=== PATIENT | male | born 1995 | race Two or more races ===

== ENCOUNTER 2016-08-24 15:59 | Inpatient (IN) | payer OTHER ==
[~2016-08-24] VITALS: Ht 170.2 cm; Wt 81.1 kg
[2016-08-24 17:22] LABS: AMPHETAMINES LEVEL URINE NEGATIVE (NEGATIVE); BENZODIAZEPINES URINE NEGATIVE (NEGATIVE); COCAINE METABOLITE URINE NEGATIVE (NEGATIVE); CONTROL LINE INT CTR LINE PRESENT; METHADONE URINE NEGATIVE (NEGATIVE); OPIATES URINE NEGATIVE (NEGATIVE); TRICYCLIC ANTIDEPRESS URINE NEGATIVE (NEGATIVE)
[2016-08-24 17:33] LABS: MEAN CORPUSCULAR HEMOGLOBIN 29.8 pg (27.0-33.0); MEAN CORPUSCULAR HGB CONC 34.5 g/dl (32.0-36.5); MEAN CORPUSCULAR VOLUME 86.4 fl (80.0-96.0); RED CELL DISTRIBUTION WIDTH 12.9 % (11.5-14.5); WHITE BLOOD COUNT 9.5 K/mm3 (4.0-10.0)
[2016-08-24 17:39] LABS: ALBUMIN 3.7 GM/DL (3.2-5.2); ALBUMIN/GLOBULIN RATIO 1.23 (1.00-1.93); ALKALINE PHOSPHATASE 92 U/L (45-117); ALT/SGPT 44 U/L (12-78); ANION GAP 9 MEQ/L (8-16); AST/SGOT 26 U/L (15-37); BILIRUBIN,DIRECT < 0.1 MG/DL (0.0-0.2); BILIRUBIN,TOTAL 0.3 MG/DL (0.2-1.0); BLOOD UREA NITROGEN 12 MG/DL (7-18); CARBON DIOXIDE LEVEL 27 MEQ/L (21-32); CHLORIDE LEVEL 107 MEQ/L (98-107); CREATININE FOR GFR 1.03 MG/DL (0.70-1.30); GLUCOSE, FASTING 91 MG/DL (70-105); SODIUM LEVEL 143 MEQ/L (136-145); TOTAL PROTEIN 6.7 GM/DL (6.4-8.2)
[2016-08-24] MEDS ORDERED: IBUP40TA PO (20:24)
[2016-08-24] MEDS ORDERED: VITMTA PO (20:24)
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
--- NOTE | 2016-08-24 20:41 | EDDOCDS ---
Physician Documentation [facility] Name: Todd Velásquez Age: 20 yrs Sex: Male : 1995 Arrival Date: 08/24/2016 Time: 15:59 Bed BHU1 Private MD: Disposition: 08/24 19:25 Critical Care: Critical care not applicable. pc Disposition: 08/24/16 19:26 Hospitalization ordered by Tommie Márquez for Inpatient Admission. Preliminary diagnosis are Major depressive disorder, single episode, moderate, Suicidal ideations. - Bed requested for Admit. - Status is Inpatient Admission. sls1 - Condition is Stable. - Problem is new. - Symptoms are unchanged. Historical: - Allergies: PENICILLINS; - Home Meds: 1. none - PMHx: none; - PSHx: none; - Social history: Smoking status: Patient states was never smoker of tobacco. No barriers to communication noted, The patient speaks fluent Yemeni, Speaks appropriately for age. - Family history: Not pertinent. - : The pt / caregiver states he / she is not on anticoagulants. Home medication list is obtained from the patient. - Exposure Risk Screening:: None identified. Vital Signs: 16:27 Weight 79.83 kg / 176 lbs; Height 5 ft. 7 in. (170.18 cm); Pain 0/10; pml 17:12 BP 133 / 89; Pulse 69; Resp 17; Temp 95(T); Pulse Ox 97% on R/A; pjf 20:28 BP 146 / 88; Pulse 84; Resp 16; Temp 96.8(O); Pulse Ox 96% ; Pain 0/10; mas 16:27 Body Mass Index 27.57 (79.83 kg, 170.18 cm) pml MDM: 16:05 Consult PFS/PSA/Marine Railway Operator ordered. sd1 16:05 Consult PFS/PSA/Marine Railway Operator: Patient's case requires discussion with on-call sd1 Psychiatrist ordered. 16:05 PSA/PFS to call Nursing Automobile Service Station Manager, to enter patient data on [place] Safe Act if patient sd1 involuntarily admitted or transferred for SI or HI ordered. 16:05 Confirm accurate psychiatric medication list and times of last dosage ordered. sd1 16:05 Detain Pt Until Medically/PFS Cleared ordered. sd1 16:06 Acetaminophen Level Ordered. EDMS 16:06 Basic Metabolic Profile Ordered. EDMS 16:06 Complete Blood Count Ordered. EDMS 16:06 Drug Eval Toxicology ED Only Ordered. EDMS 16:06 Ethyl Alcohol (ethanol) Ordered. EDMS 16:06 Liver Profile Ordered. EDMS 16:06 Salicylate Level Ordered. EDMS 16:06 Thyroid Stimulating Hormone Ordered. EDMS 16:42 Financial registration complete. zo 16:48 [facility] Payment Agreement was scanned into [employer] and attached to record. zo 17:00 REGULAR DIET PLASTIC [place]+DIET ordered. EDMS 17:59 Consult PFS/PSA/Marine Railway Operator complete. ca 17:59 Consult PFS/PSA/Marine Railway Operator: Patient's case requires discussion with on-call ca Psychiatrist complete. 17:59 PSA/PFS to call Nursing Automobile Service Station Manager, to enter patient data on [place] Safe [place] if patient ca involuntarily admitted or transferred for SI or HI complete. 18:57 Admit to [facility]: ordered. EDMS 19:08 [facility] Legal paperwork was scanned into [employer] and attached to record. cs 19:24 Acetaminophen Level Reviewed. pc 19:24 Complete Blood Count Reviewed. pc 19:24 Salicylate Level Reviewed. pc 19:24 Basic Metabolic Profile Reviewed. pc 19:24 Drug Eval Toxicology ED Only Reviewed. pc 19:24 Ethyl Alcohol (ethanol) Reviewed. pc 19:24 Liver Profile Reviewed. pc 19:24 Thyroid Stimulating Hormone Reviewed. pc 19:25 [place] Safe Act reporting: The patient poses a significant risk to self or others, and pc PSA/PFS has notified the Nursing Automobile Service Station Manager and he/she will complete the required database technician. The patient has been re-examined and re-evaluated. There is no appreciated change of the patient's symptoms at this time. Disposition: The historical points, examination findings, and any diagnostic results supporting the provided diagnosis, were discussed with the patient or legal guardian. The need for further work-up and/or treatment in the hospital was explained. Signatures: Dispatcher [employer] EDMS Braulio Nogueira MD MD pc Delaney-Rowland, Sarah, MD MD sd1 Xiao Arnold, PSA PSA ca Zana Pizano, PSA PSA Eliz Regan Shannon, RN RN sls1 Eliane Kahn RN RN pml The chart was reviewed and I authenticate all verbal orders and agree with the evaluation and treatment provided.Attachments: 16:48 [facility]
[2016-08-24 21:05] VITALS: BP 138/86
[2016-08-24] MEDS ORDERED: MOM 30ML SUSPENSION UDC PO PRN (22:45)
[2016-08-24] MEDS ORDERED: MAALOX 30 ML SUSP *UDC PO PRN (22:45)
[2016-08-24] MEDS ORDERED: LORazepam 1 MG TAB PO PRN (23:00)
[2016-08-25 06:35] VITALS: BP 116/58
--- NOTE | 2016-08-25 11:34 | HPEPDOC ---
Medical History and Physical Date of Admission Aug 24, 2016 at 20:45 History and Physical PCP: [facility] ATTENDING: Dr. Carlton Bagley HPI: 20yoM admitted to [facility] for unspecified depressive disorder, being medically examined today. No acute medical complaints today. Denies any fevers, chills, weakness, fatigue, SHETH, CP, SOB, cough, palpitations, abdominal pain, N/V /D or changes in bowel or bladder habits. 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 ROS: As noted in HPI, otherwise 11pt ROS of systems reviewed and unremarkable. PE: GEN: 20yoM, appears stated age. Well-nourished, well developed. No acute distress. Alert and oriented x 3. Pleasant, interactive. HEENT: Normocephalic, atraumatic. Pupils are equal, round, and reactive to light. Extraocular movements are intact. No nystagmus appreciated. Sclera are nonicteric. Conjunctiva without injection. Nose midline. Nasal turbinates without bogginess. EACs both patent BL. TMs both visualized and sanders with good cone of light, no bulging or erythema. No facial asymmetry. Moist mucous membranes. Dentition fair. Pharynx pink and moist, no cobblestoning. Neck supple , trachea midline. No lymphadenopathy or thyromegaly appreciated. CHEST: Regular rate and rhythm, +S1, +S2 LUNGS: Clear to auscultation bilaterally. No wheezes, rales, or rhonchi. Breathing appears symmetric and easy. Patient is speaking in full sentences. No accessory muscle use. ABD: Round, soft, non-tender, non-distended. +Bowel sounds throughout. No rebound or guarding. No costovertebral angle tenderness. EXT: Pulses 2+ bilaterally dorsalis pedis and radial. No lower extremity edema appreciated. SKIN: Lee, dry, warm. Capillary refill <2sec. No rashes. NEURO: Alert and oriented x 3. Cranial nerves III-XII are intact. No focal deficits appreciated. EKG: pending. A&P: 20yoM admitted to [facility] for unspecified depressive disorder 1. Psych. Plan per Psychiatry. Obtain baseline EKG to assure the safety of psychiatric medications as they can prolong the QT interval. 2. Follow up with PCP on discharge. [facility]. 3. Staff member present throughout exam, product safety compliance leader Ed. Vital Signs Vital Signs Label Value Date Time Patient Temperature 96.2 degrees F 08/25/16 0635 Pulse 59 08/25/16 0635 Respiratory Rate 18 bpm 08/25/16 0635 Blood Pressure Assessment 116/58 (77) 08/25/16 0635 Laboratory Data Labs 24H Laboratory Tests 2 08/24/16 16:54: Acetaminophen Level < 2.0L, Aspartate Amino Transf (AST/SGOT) 26, Alanine Aminotransferase (ALT/SGPT) 44, Alkaline Phosphatase 92, Total Bilirubin 0.3, Direct Bilirubin < 0.1, Albumin 3.7, Albumin/Globulin Ratio 1.23, Anion Gap 9, Calcium Level 9.0, Ethyl Alcohol Level < 0.003, Salicylates Level < 1.7L, Thyroid Stimulating Hormone (TSH) 0.797, Total Protein 6.7, Urine Amphetamine Level NEGATIVE, Urine Benzodiazepines Screen NEGATIVE, Urine Cannabinoids NEGATIVE, Urine Cocaine Metabolite NEGATIVE, Urine Opiates Screen NEGATIVE, Urine Barbiturates, Qualitative NEGATIVE, Urine Methadone Screen NEGATIVE, Urine Tricyclic Antidepressants NEGATIVE CBC/BMP Laboratory Tests 08/24/16 16:54 Red Blood Count 4.80, Mean Corpuscular Volume 86.4, Mean Corpuscular Hemoglobin 29.8, Mean Corpuscular Hemoglobin Concent 34.5, Red Cell Distribution Width 12.9 Home Medications Scheduled Multivitamins *[facility] STOCKED* (Thera M Plus *[facility] STOCKED*) 1 Tab Tab 1 TAB PO DAILY Scheduled PRN Ibuprofen (Ibuprofen) 400 Mg Tab 400 MG PO PRN PRN PRN HEADACHE Allergies Coded Allergies: Penicillins (Unverified Allergy, Unknown, HIVES, 08/24/16) Eveline Dill Aug 25, 2016 11:34
[2016-08-25 12:37] VITALS: BP 129/76
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
[2016-08-25] MEDS: buPROPion **XL** TABLET 150MG (WELLBUTRIN XL) PO SCH (15:13)
[2016-08-25 18:01] VITALS: BP 126/74
[2016-08-26 07:07] VITALS: BP 140/66
[2016-08-26] MEDS: buPROPion **XL** TABLET 150MG (WELLBUTRIN XL) PO SCH (09:32)
[2016-08-26 12:00] VITALS: BP 139/83
--- NOTE | 2016-08-26 17:36 | IPNPDOC ---
[facility] Progress Note Progress Note DATE OF SERVICE: 08/26/16 HISTORY: Butter Printer met with patient today to assess treatment progress on the inpatient unit. Patient has been up out of bed, visible on unit, attending unit activities, remains withdrawn, but is making efforts to engage with selective staff and peers. Patient rates current anxiety level is 1/10, depression 6/10, denies current suicidal or homicidal ideation, denies audiovisual hallucinations , denies urge to engage in self-injurious behavior. Patient indicates he slept well last night and, per EMR, slept for 7 hours throughout the night without use of sleep aid. Patient took initial dose of Wellbutrin XL 150 mg this morning , denies medication side effects and informs continuity writer he wants to continue with medication trial in effort to reduce symptoms of depression and anxiety. Patient has not utilized as needed medication for anxiety or sleep, verbalizes awareness that these medications are available to him if needed. Patient denies symptoms of anger, agitation, or mood lability, reports improvement in energy level, notes appetite and concentration are stable. Patient asked about discharge planning and reiterates desire to return to [place] once stabilized on medication. VITAL SIGNS: See below. NEW TEST RESULTS: No new results. Labs on admission indicated low HCT. UDS on admission negative. EKG results remain pending, not found in EMR CURRENT MEDICATIONS: See below. MENTAL STATUS EXAMINATION: Patient is a 20 -year-old single male who is pleasant and cooperative, exhibits good personal hygiene, is dressed in hospital clothing, makes good eye contact, walks with steady gait, and appears stated age. Speech: Is of low volume but of normal rate, rhythm, articulation is good, speech is coherent and spontaneous Language skills are intact. Thought processes: Clear, goal-directed. Thought content: Rational, logical, no indication of paranoia during interaction. Abstract reasoning appears intact Description of associations: Intact Description of abnormal or psychotic thoughts: Denies hallucinations, delusions , preoccupation with violence, homicidal or suicidal ideation, and obsessions]. Judgment: Limited. Insight: Limited. Orientation to time, place and person Recent and remote memory: Appears intact Attention span and concentration: Within normal limits. Language: Normal. Fund of knowledge: Adequate. 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 Patient denies having plan or intent to harm self at time of suicidal ideation but indicates he did turn over 2 knives to his chain of command due to concerns that he may harm himself. Patient appears to be adjusting to unit, has been visible, engaging appropriately with select peers and staff, is attending groups. Patient denies current suicidal and homicidal ideation and is able to effectively engage in the safety planning process, verbalizes understanding of how to access supportive services on unit if needed. Patient reports challenges with sleep prior to coming to hospital, but notes he has been sleeping better since admitted to Hospital, has not needed to utilize PRN sleep aid, denies nightmares symptoms. Patient took first dose of Wellbutrin XL 150 mg po q am this morning, denies medication side effects, reiterates motivation to take medication which will reduce symptoms of anxiety and depression which patient indicates he has been experiencing "for years." Will monitor patient response to Wellbutrin XL and will evaluate need for titration as tolerated by patient. Will continue to monitor patient's adjustment to environment, evaluate patient's safety and resolution of suicidal ideation, and readiness for discharge. MANAGEMENT PLAN: Continue Wellbutrin XL 150 mg po q am. Patient is aware he also has available to him hydroxyzine 50 mg po q 6 hours PRN for anxiety/ agitation and Trazodone 50 mg po hs PRN for insomnia Maintain safety precautions Patient to attend groups and participate in unit programming to develop coping strategies Engage patient in discharge planning process and arrange meeting with command to ensure safe discharge planning when appropriate Patient to follow up with [facility] upon discharge TIME SPENT: 35 minutes Vital Signs Vital Signs Date Time Temp Pulse Resp B/P Pulse Ox O2 Delivery O2 Flow Rate FiO2 08/26/16 12:00 97.8 92 16 139/83 Current Medications Current Medications Acetaminophen (Tylenol Tab) 650 mg Q6HP PRN PO HEADACHE or DISCOMFORT; Start at 22:45; Stop 09/23/16 at 22:44 Al Hydrox/Mg Hydrox/Simethicone (Mylanta) 30 ml Q4HP PRN PO HEARTBURN/ INDIGESTION; Start 08/24/16 at 22:45; Stop 09/23/16 at 22:44 Bupropion HCl (Wellbutrin Xl) 150 mg QAM PO Last administered on 08/26/16t 09:32 ; Start 08/25/16 at 09:00; Stop 09/24/16 at 08:59 Home Med (Med Rec Complete!) ASDIRECTED XX ; Start 08/24/16 at 20:30; Stop at 20:54; Status DC Hydroxyzine HCl (Atarax) 50 mg Q6HP PRN PO ANXIETY/AGITATION; Start 08/25/16 at 14:30; Stop 09/24/16 at 14:29 Lorazepam (Ativan) 1 mg Q4HP PRN PO ANXIETY; Start 08/24/16 at 23:00; Stop at 14:19; Status DC Magnesium Hydroxide (Milk Of Magnesia) 30 ml DAILYPRN PRN PO CONSTIPATION; Start 08/24/16 at 22:45; Stop 09/23/16 at 22:44 Trazodone HCl (Desyrel) 50 mg QHSP PRN PO INSOMNIA; Start 08/24/16 at 22:45; Stop 09/23/16 at 22:44 Allergies Coded Allergies: Penicillins (Unverified Allergy, Unknown, HIVES, 08/24/16) Shonda Pickett Aug 26, 2016 17:36
[2016-08-26 18:00] VITALS: BP 130/76
--- NOTE | 2016-08-26 21:41 | EDDOCDS ---
Physician Documentation [facility] Name: Todd Velásquez Age: 20 yrs Sex: Male : 1995 Arrival Date: 08/24/2016 Time: 15:59 Bed BHU1 Private MD: Disposition: 08/24 19:25 Critical Care: Critical care not applicable. pc Disposition: 08/24/16 19:26 Hospitalization ordered by Tommie Márquez for Inpatient Admission. Preliminary diagnosis are Major depressive disorder, single episode, moderate, Suicidal ideations. - Bed requested for Admit. - Status is Inpatient Admission. sls1 - Condition is Stable. - Problem is new. - Symptoms are unchanged. Historical: - Allergies: PENICILLINS; - Home Meds: 1. none - PMHx: none; - PSHx: none; - Social history: Smoking status: Patient states was never smoker of tobacco. No barriers to communication noted, The patient speaks fluent Kazakh, Speaks appropriately for age. - Family history: Not pertinent. - : The pt / caregiver states he / she is not on anticoagulants. Home medication list is obtained from the patient. - Exposure Risk Screening:: None identified. Vital Signs: 16:27 Weight 79.83 kg / 176 lbs; Height 5 ft. 7 in. (170.18 cm); Pain 0/10; pml 17:12 BP 133 / 89; Pulse 69; Resp 17; Temp 95(T); Pulse Ox 97% on R/A; pjf 20:28 BP 146 / 88; Pulse 84; Resp 16; Temp 96.8(O); Pulse Ox 96% ; Pain 0/10; mas 16:27 Body Mass Index 27.57 (79.83 kg, 170.18 cm) pml MDM: 16:05 Consult PFS/PSA/Prepress Technician ordered. sd1 16:05 Consult PFS/PSA/Prepress Technician: Patient's case requires discussion with on-call sd1 Psychiatrist ordered. 16:05 PSA/PFS to call Nursing Custodian Manager, to enter patient data on [place] Safe [place] if patient sd1 involuntarily admitted or transferred for SI or HI ordered. 16:05 Confirm accurate psychiatric medication list and times of last dosage ordered. sd1 16:05 Detain Pt Until Medically/PFS Cleared ordered. sd1 16:06 Acetaminophen Level Ordered. EDMS 16:06 Basic Metabolic Profile Ordered. EDMS 16:06 Complete Blood Count Ordered. EDMS 16:06 Drug Eval Toxicology ED Only Ordered. EDMS 16:06 Ethyl Alcohol (ethanol) Ordered. EDMS 16:06 Liver Profile Ordered. EDMS 16:06 Salicylate Level Ordered. EDMS 16:06 Thyroid Stimulating Hormone Ordered. EDMS 16:42 Financial registration complete. zo 16:48 [facility] [place] was scanned into [employer] and attached to record. zo 17:00 REGULAR DIET PLASTIC LAGUNA+DIET ordered. EDMS 17:59 Consult PFS/PSA/Prepress Technician complete. ca 17:59 Consult PFS/PSA/Prepress Technician: Patient's case requires discussion with on-call ca Psychiatrist complete. 17:59 PSA/PFS to call Nursing Custodian Manager, to enter patient data [place] if patient ca involuntarily admitted or transferred for SI or HI complete. 18:57 Admit to [facility]: ordered. EDMS 19:08 [facility] Legal paperwork was scanned into [employer] and attached to record. cs 19:24 Acetaminophen Level Reviewed. pc 19:24 Complete Blood Count Reviewed. pc 19:24 Salicylate Level Reviewed. pc 19:24 Basic Metabolic Profile Reviewed. pc 19:24 Drug Eval Toxicology ED Only Reviewed. pc 19:24 Ethyl Alcohol (ethanol) Reviewed. pc 19:24 Liver Profile Reviewed. pc 19:24 Thyroid Stimulating Hormone Reviewed. pc 19:25 [place] Safe Act reporting: The patient poses a significant risk to self or others, and pc PSA/PFS has notified the Nursing Custodian Manager and he/she will complete the required senior marketing data analyst. The patient has been re-examined and re-evaluated. There is no appreciated change of the patient's symptoms at this time. Disposition: The historical points, examination findings, and any diagnostic results supporting the provided diagnosis, were discussed with the patient or legal guardian. The need for further work-up and/or treatment in the hospital was explained. 08/25 09:47 T-Sheet-- Draft Copy was scanned into [employer] and attached to record. gb 09:47 PCR was scanned into [employer] and attached to record. gb Signatures: Dispatcher [employer] EDME Braulio Nogueira MD MD pc Delaney-Rowland, Sarah, MD MD sd1 Xiao Arnold, PSA PSA Zana Pitts PSA PSA cs Gabby Jimenez, Reg Reg gb Eliz Bolaños Shannon, RN RN sls1 Eliane Kahn RN RN pml The chart was reviewed and I authenticate all verbal orders and agree with the evaluation and treatment provided.Attachments: 08/24 16:48 [facility] [place] Agreement zo 08/25 09:47 T-Sheet-- Draft Copy gb Chart Complete MTDD
--- NOTE | 2016-08-26 21:41 | EDDOCDS ---
Physician Documentation [facility] Name: Todd Velásquez Age: 20 yrs Sex: Male : 1995 Arrival Date: 08/24/2016 Time: 15:59 Bed BHU1 Private MD: Disposition: 08/24 19:25 Critical Care: Critical care not applicable. pc Disposition: 08/24/16 19:26 Hospitalization ordered by Tommie Márquez for Inpatient Admission. Preliminary diagnosis are Major depressive disorder, single episode, moderate, Suicidal ideations. - Bed requested for Admit. - Status is Inpatient Admission. sls1 - Condition is Stable. - Problem is new. - Symptoms are unchanged. Historical: - Allergies: PENICILLINS; - Home Meds: 1. none - PMHx: none; - PSHx: none; - Social history: Smoking status: Patient states was never smoker of tobacco. No barriers to communication noted, The patient speaks fluent Venezuelan, Speaks appropriately for age. - Family history: Not pertinent. - : The pt / caregiver states he / she is not on anticoagulants. Home medication list is obtained from the patient. - Exposure Risk Screening:: None identified. Vital Signs: 16:27 Weight 79.83 kg / 176 lbs; Height 5 ft. 7 in. (170.18 cm); Pain 0/10; pml 17:12 BP 133 / 89; Pulse 69; Resp 17; Temp 95(T); Pulse Ox 97% on R/A; pjf 20:28 BP 146 / 88; Pulse 84; Resp 16; Temp 96.8(O); Pulse Ox 96% ; Pain 0/10; mas 16:27 Body Mass Index 27.57 (79.83 kg, 170.18 cm) pml MDM: 16:05 Consult PFS/PSA/Splicing Supervisor ordered. sd1 16:05 Consult PFS/PSA/Splicing Supervisor: Patient's case requires discussion with on-call sd1 Psychiatrist ordered. 16:05 PSA/PFS to call Nursing On Site Soil Evaluator, to [place] data [place] if patient sd1 involuntarily admitted or transferred for SI or HI ordered. 16:05 Confirm accurate psychiatric medication list and times of last dosage ordered. sd1 16:05 Detain Pt Until Medically/PFS Cleared ordered. sd1 16:06 Acetaminophen Level Ordered. EDMS 16:06 Basic Metabolic Profile Ordered. EDMS 16:06 Complete Blood Count Ordered. EDMS 16:06 Drug Eval Toxicology ED Only Ordered. EDMS 16:06 Ethyl Alcohol (ethanol) Ordered. EDMS 16:06 Liver Profile Ordered. EDMS 16:06 Salicylate Level Ordered. EDMS 16:06 Thyroid Stimulating Hormone Ordered. EDMS 16:42 Financial registration complete. zo 16:48 [facility] [place] Agreement was scanned into [employer] and attached to record. zo 17:00 REGULAR DIET PLASTIC LAGUNA+DIET ordered. EDMS 17:59 Consult PFS/PSA/Splicing Supervisor complete. ca 17:59 Consult PFS/PSA/Splicing Supervisor: Patient's case requires discussion with on-call ca Psychiatrist complete. 17:59 PSA/PFS to call Nursing On Site Soil Evaluator, to [place] if patient ca involuntarily admitted or transferred for SI or HI complete. 18:57 Admit to [facility]: ordered. EDMS 19:08 [facility] Legal paperwork was scanned into [employer] and attached to record. cs 19:24 Acetaminophen Level Reviewed. pc 19:24 Complete Blood Count Reviewed. pc 19:24 Salicylate Level Reviewed. pc 19:24 Basic Metabolic Profile Reviewed. pc 19:24 Drug Eval Toxicology ED Only Reviewed. pc 19:24 Ethyl Alcohol (ethanol) Reviewed. pc 19:24 Liver Profile Reviewed. pc 19:24 Thyroid Stimulating Hormone Reviewed. pc 19:25 [place] reporting: The patient poses a significant risk to self or others, and pc PSA/PFS has notified the Nursing On Site Soil Evaluator and he/she will complete the required chief data officer. The patient has been re-examined and re-evaluated. There is no appreciated change of the patient's symptoms at this time. Disposition: The historical points, examination findings, and any diagnostic results supporting the provided diagnosis, were discussed with the patient or legal guardian. The need for further work-up and/or treatment in the hospital was explained. 08/25 09:47 T-Sheet-- Draft Copy was scanned into [employer] and attached to record. gb 09:47 PCR was scanned into [employer] and attached to record. gb Signatures: Dispatcher [employer] EDAZ Braulio Nogueira MD MD pc Delaney-Rowland, Sarah, MD MD sd1 Xiao Arnold, PSA PSA Zana Pitts PSA PSA cs Gabby Jimenez, Reg Reg gb Eliz Bolaños Shannon, RN RN sls1 Eliane Kahn RN RN pml The chart was reviewed and I authenticate all verbal orders and agree with the evaluation and treatment provided.Attachments: 08/24 16:48 [facility] [place] Payment Agreement zo 08/25 09:47 T-Sheet-- Draft Copy gb Chart Complete MTDD
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
[2016-08-27 06:35] VITALS: BP 136/60
[2016-08-27] MEDS: buPROPion **XL** TABLET 150MG (WELLBUTRIN XL) PO SCH (08:10)
[2016-08-27 11:36] VITALS: BP 133/87
[2016-08-27] MEDS: OSELTAMIVIR PHOSPHATE 75 MG CAP (TAMIFLU) PO SCH (12:51)
[2016-08-27 18:00] VITALS: BP 126/71
--- NOTE | 2016-08-27 20:02 | IPNPDOC ---
[facility] Progress Note Progress Note DATE OF SERVICE: 08/27/16 HISTORY: Mica Washer Gluer met with patient today to assess treatment progress on the inpatient unit. Patient was observed to be resting in bed in groups, is easily engaged and set up to meet with technical writer and editor. Patient has otherwise been visible on unit, attending unit activities, remains withdrawn but, per EMR, is making increased efforts to engage socially. Patient rates current anxiety level is 1/ 10, depression 6/10, denies current suicidal or homicidal ideation, denies audiovisual hallucinations, denies urge to engage in self-injurious behavior. Patient indicates he is sleeping well without use of sleep aid, denies nightmare symptoms. Patient indicates he continues to take Wellbutrin XL 150 mg , reports feeling tired, indicates he is not sure if related to medication, was encouraged to monitor. patient remains interested in continuing medication in effort to reduce symptoms of depression and anxiety. Patient denies symptoms of anger, agitation, or mood lability, notes appetite and concentration are stable. Patient denies physical pain and presents with no signs of acute distress. VITAL SIGNS: See below. NEW TEST RESULTS: No new results. Labs on admission indicated low HCT. UDS on admission negative. EKG results remain pending, not found in EMR CURRENT MEDICATIONS: See below. MENTAL STATUS EXAMINATION: Patient is a 20 -year-old single male who is pleasant and cooperative, exhibits good personal hygiene, is dressed in hospital clothing, makes good eye contact, walks with steady gait, and appears stated age. Speech: Is of low volume but of normal rate, rhythm, articulation is good, speech is coherent and spontaneous Language skills are intact. Thought processes: Clear, goal-directed. Thought content: Rational, logical, no indication of paranoia during interaction. Abstract reasoning appears intact Description of associations: Intact Description of abnormal or psychotic thoughts: Denies hallucinations, delusions , preoccupation with violence, homicidal or suicidal ideation, and obsessions]. Judgment: Limited. Insight: Limited. Orientation to time, place and person Recent and remote memory: Appears intact Attention span and concentration: Within normal limits. Language: Normal. Fund of knowledge: Adequate. Mood: "About the same." Appears depressed, no mood lability noted Affect: Constricted, and brightens 1, congruent with mood DIAGNOSES: Major depressive disorder, recurrent, moderate, rule out adjustment disorder with depressed mood, rule out PTSD ASSESSMENT: Patient appears to be adjusting to unit, has been visible, engaging appropriately with select peers and staff, is attending groups. Patient denies current suicidal and homicidal ideation and is able to effectively engage in the safety planning process, verbalizes understanding of how to access supportive services on unit if needed. Patient reports challenges with sleep prior to coming to hospital, but notes sleep remains improved since hospital admission, has not needed to utilize PRN sleep aid or anxiolytic. Patient took second dose of Wellbutrin XL 150 mg po q am this morning, denies medication side effects, reiterates motivation to take medication which will reduce symptoms of anxiety and depression which patient indicates he has been experiencing "for years." Will monitor patient response to Wellbutrin XL and will evaluate need for titration as tolerated by patient. Will continue to monitor patient's adjustment to environment, evaluate patient's safety and resolution of suicidal ideation, and readiness for discharge. MANAGEMENT PLAN: Continue Wellbutrin XL 150 mg po q am. Patient is aware he also has available to him hydroxyzine 50 mg po q 6 hours PRN for anxiety/ agitation and Trazodone 50 mg po hs PRN for insomnia Maintain safety precautions Patient to attend groups and participate in unit programming to develop coping strategies Engage patient in discharge planning process and arrange meeting with command to ensure safe discharge planning when appropriate Patient to follow up with Silvestre OLSON upon discharge TIME SPENT: 35 minutes Vital Signs Vital Signs Date Time Temp Pulse Resp B/P Pulse Ox O2 Delivery O2 Flow Rate FiO2 08/27/16 18:00 98.8 71 18 126/71 Current Medications Current Medications Acetaminophen (Tylenol Tab) 650 mg Q6HP PRN PO HEADACHE or DISCOMFORT; Start at 22:45; Stop 09/23/16 at 22:44 Al Hydrox/Mg Hydrox/Simethicone (Mylanta) 30 ml Q4HP PRN PO HEARTBURN/ INDIGESTION; Start 08/24/16 at 22:45; Stop 09/23/16 at 22:44 Bupropion HCl (Wellbutrin Xl) 150 mg QAM PO Last administered on 08/27/16t 08: 10; Start 08/25/16 at 09:00; Stop 09/24/16 at 08:59 Home Med (Med Rec Complete!) ASDIRECTED XX ; Start 08/24/16 at 20:30; Stop at 20:54; Status DC Hydroxyzine HCl (Atarax) 50 mg Q6HP PRN PO ANXIETY/AGITATION; Start 08/25/16 at 14:30; Stop 09/24/16 at 14:29 Lorazepam (Ativan) 1 mg Q4HP PRN PO ANXIETY; Start 08/24/16 at 23:00; Stop at 14:19; Status DC Magnesium Hydroxide (Milk Of Magnesia) 30 ml DAILYPRN PRN PO CONSTIPATION; Start 08/24/16 at 22:45; Stop 09/23/16 at 22:44 Oseltamivir Phosphate (Tamiflu) 75 mg DAILY PO Last administered on 08/27/16t 12:51; Start 08/27/16 at 09:00; Stop 09/06/16 at 08:59 Trazodone HCl (Desyrel) 50 mg QHSP PRN PO INSOMNIA; Start 08/24/16 at 22:45; Stop 09/23/16 at 22:44 Allergies Coded Allergies: Penicillins (Unverified Allergy, Unknown, HIVES, 08/24/16) Shonda Pickett Aug 27, 2016 20:02
[2016-08-28 06:17] VITALS: BP 127/79
[2016-08-28] MEDS: OSELTAMIVIR PHOSPHATE 75 MG CAP (TAMIFLU) PO SCH (08:30)
[2016-08-28] MEDS: buPROPion **XL** TABLET 150MG (WELLBUTRIN XL) PO SCH (08:30)
[2016-08-28] MEDS: ACETAMINOPHEN TAB 650MG DOSE (2X325MG) PO PRN (16:03)
[2016-08-28 18:33] VITALS: BP 131/66
[2016-08-29] MEDS: ACETAMINOPHEN TAB 650MG DOSE (2X325MG) PO PRN (06:21)
[2016-08-29 06:32] VITALS: BP 126/67
--- NOTE | 2016-08-29 07:14 | IPN ---
DATE: 08/28/2016 CHIEF COMPLAINT: Says feels better. SUBJECTIVE: He is sen for followup. Says his mood is better in that he is a bit less depressed. Sleep is fair, says has had difficulties with sleep, both getting to and staying asleep. Appetite is fair. Denies any suicidal thoughts or intents. MENTAL STATUS EXAMINATION: Neat, cooperative but appears somewhat guarded at time. Answers question briefly, coherently. Affect is restricted in range. Denies active suicidal thoughts at present. Denies any firm plans. No homicidal ideas or intents. Currently, no evidence of any psychosis. Judgment and insight are questionable. ASSESSMENT: Major depressive disorder, recurrent, moderate. PLAN: Continue Wellbutrin XL 150 mg daily. He is also on hydroxyzine 50 mg every 6 hours as needed. I would suggest that he be encouraged to be involved in activities in the unit. Further recommendations will be made depending on the clinical picture.
[2016-08-29] MEDS: buPROPion **XL** TABLET 150MG (WELLBUTRIN XL) PO SCH (08:06)
[2016-08-29] MEDS: OSELTAMIVIR PHOSPHATE 75 MG CAP (TAMIFLU) PO SCH (08:06)
[2016-08-29 18:00] VITALS: BP 134/78
[2016-08-29] MEDS: traZODone 50 MG TAB PO PRN (21:20)
[2016-08-30 06:00] VITALS: BP 141/76
--- NOTE | 2016-08-30 08:46 | IPNPDOC ---
[facility] Progress Note Progress Note DATE OF SERVICE: 08/30/16 SUBJECTIVE: ========= Patient is calm and cooperative on interview. He is engaged and reports has improved since admission. Today he reports his mood continues to be depressed at at an intensity of 5-6/10. He denies thoughts of SI and HI today. Patient reports no medication side effects on his current psychotropic regimen. He denies SHETH, CP, ABD pain. He denies N/V/C/D. No bizarre or inappropriate statements or behaviors noted. Patient reports fair sleep and appetite. No behavioral issues on the unit. OBJECTIVE: ========= VITAL SIGNS: wnl. NEW TEST RESULTS: No new results. CURRENT MEDICATIONS: See below. MENTAL STATUS EXAMINATION: Patient is 20-year-old male, Patient presents with good personal hygiene, is dressed in hospital clothing, makes good eye contact, steady gait, exhibits no psychomotor retardation or agitation today, appears stated age, engaged, calm and cooperative with interview. Speech: Is of normal rate, rhythm, volume, spontaneous, coherent Language skills are intact. Thought processes: Clear, goal-directed Thought content: Rational. Abstract reasoning, and computation: Appears intact Description of associations: Intact. Description of abnormal or psychotic thoughts: Patient denies hallucinations, delusions, preoccupation with violence, homicidal or suicidal ideation, and obsessions]. Judgment: Fair. Insight: Fair. Orientation to time, place and person. Recent and remote memory: Immediate, short-term and long-term memory is intact Attention span and concentration: Within normal limits. Language: Normal. Fund of knowledge: Adequate. Mood: depressed Affect: mildly depressed ASSESSMENT: MDD, R, M, w/o PFs r/o PTSD PLAN: ==== -Continue current psychotropic regimen as written. Patient reporting benefit on current regimen. -Maintain safety precautions. -Patient to attend groups and participate in unit programming to develop coping strategies. TIME SPENT: 20 minutes Vital Signs Vital Signs Date Time Temp Pulse Resp B/P Pulse Ox O2 Delivery O2 Flow Rate FiO2 08/30/16 06:00 96.5 70 18 141/76 Current Medications Current Medications Acetaminophen (Tylenol Tab) 650 mg Q6HP PRN PO HEADACHE or DISCOMFORT Last administered on 08/29/16t 06:21; Start 08/24/16 at 22:45; Stop 09/23/16 at 22:44 Al Hydrox/Mg Hydrox/Simethicone (Mylanta) 30 ml Q4HP PRN PO HEARTBURN/ INDIGESTION; Start 08/24/16 at 22:45; Stop 09/23/16 at 22:44 Bupropion HCl (Wellbutrin Xl) 150 mg QAM PO Last administered on 08/29/16 08: 06; Start 08/25/16 at 09:00; Stop 09/24/16 at 08:59 Home Med (Med Rec Complete!) ASDIRECTED XX ; Start 08/24/16 at 20:30; Stop at 20:54; Status DC Hydroxyzine HCl (Atarax) 50 mg Q6HP PRN PO ANXIETY/AGITATION; Start 08/25/16 at 14:30; Stop 09/24/16 at 14:29 Lorazepam (Ativan) 1 mg Q4HP PRN PO ANXIETY; Start 08/24/16 at 23:00; Stop at 14:19; Status DC Magnesium Hydroxide (Milk Of Magnesia) 30 ml DAILYPRN PRN PO CONSTIPATION; Start 08/24/16 at 22:45; Stop 09/23/16 at 22:44 Oseltamivir Phosphate (Tamiflu) 75 mg DAILY PO Last administered on 08/29/16 08:06; Start 08/27/16 at 09:00; Stop 09/06/16 at 08:59 Trazodone HCl (Desyrel) 50 mg QHSP PRN PO INSOMNIA Last administered on 21:20; Start 08/24/16 at 22:45; Stop 09/23/16 at 22:44 Allergies Coded Allergies: Penicillins (Unverified Allergy, Unknown, HIVES, 08/24/16) NEVAEH ADLER MD Aug 30, 2016 08:46 NEVAEH ADLER MD Aug 30, 2016 08:46
[2016-08-30] MEDS: OSELTAMIVIR PHOSPHATE 75 MG CAP (TAMIFLU) PO SCH (08:52)
[2016-08-30] MEDS: buPROPion **XL** TABLET 150MG (WELLBUTRIN XL) PO SCH (08:52)
[2016-08-30] MEDS: ACETAMINOPHEN TAB 650MG DOSE (2X325MG) PO PRN (15:11)
[2016-08-30 18:00] VITALS: BP 127/61
[2016-08-31 07:11] VITALS: BP 133/64
[2016-08-31] MEDS: OSELTAMIVIR PHOSPHATE 75 MG CAP (TAMIFLU) PO SCH (08:32)
[2016-08-31] MEDS: buPROPion **XL** TABLET 150MG (WELLBUTRIN XL) PO SCH (08:32)
--- NOTE | 2016-08-31 09:49 | IPNPDOC ---
[facility] Progress Note Progress Note DATE OF SERVICE: 08/31/16 HISTORY: Monitor Technician met with patient today to assess treatment progress on the inpatient unit. Patient was observed to be resting in bed in groups, is easily engaged and set up to meet with grant writer. Patient indicates he has been attending groups when able, notes he was sick with a head cold over the weekend, but is feeling better today. Patient reports 1/10 anxiety, 2/10 depression, denies suicidal and homicidal ideation, denies audiovisual hallucinations, denies urge to engage in self-injurious behavior. Patient indicates he is sleeping well without use of sleep aid and denies nightmare symptoms, notes he experienced some difficulty with sleep over weekend due to symptoms of head cold. Patient indicates he continues to take Wellbutrin XL 150 mg, today denies medication side effects and informs grant writer he feels medication is helpful in reducing symptoms of anxiety and depression. Patient denies symptoms of anger, agitation , or mood lability, notes appetite and concentration are stable. Patient denies physical pain and presents with no signs of acute distress. Patient informs grant writer he feels his residual symptoms are "strictly situational," related to family tension, notes he feels his feelings can be worked through in outpatient psychotherapy. Patient informs grant writer today he feels her for discharge and is requesting to return to his unit at [facility] and participate in outpatient psychotherapy and medication management services VITAL SIGNS: See below. NEW TEST RESULTS: No new results. Labs on admission indicated low HCT. UDS on admission negative. EKG results remain pending, not found in EMR CURRENT MEDICATIONS: See below. MENTAL STATUS EXAMINATION: Patient is a 20 -year-old single male who is pleasant and cooperative, exhibits good personal hygiene, is dressed in hospital clothing, makes good eye contact, walks with steady gait, and appears stated age. Speech: Is of low volume but of normal rate, rhythm, articulation is good, speech is coherent and spontaneous Language skills are intact. Thought processes: Clear, goal-directed. Thought content: Rational, logical, no indication of paranoia during interaction. Abstract reasoning appears intact Description of associations: Intact Description of abnormal or psychotic thoughts: Denies hallucinations, delusions , preoccupation with violence, homicidal or suicidal ideation, and obsessions]. Judgment: Limited. Insight: Limited. Orientation to time, place and person Recent and remote memory: Appears intact Attention span and concentration: Within normal limits. Language: Normal. Fund of knowledge: Adequate. Mood: "I feel better." Does not appear depressed or irritable, no mood lability noted Affect: Mild constriction, brightens frequently, congruent with mood DIAGNOSES: Major depressive disorder, recurrent, moderate, rule out adjustment disorder with depressed mood, rule out PTSD ASSESSMENT: Patient has adjusted to unit, has been visible, and is engaging appropriately with peers and staff, is attending groups. Patient has been over the head cold over the weekend, indicates today he is feeling better, and "stronger," notes he feels prepared to return to the [facility] base. Patient denies suicidal and homicidal ideation and is able to effectively engage in the safety planning process, verbalizes understanding of how to access supportive services on unit if needed. Patient denies challenges with sleep other than related to head cold symptoms he experienced over the weekend, has needed to utilize PRN sleep aid 1 during his inpatient stay, has not needed to take PRN anxiolytic, states energy level has improved. Patient states Wellbutrin XL continues to work well and denies medication side effects. Patient is today requesting discharge, multimedia coordinator to schedule meeting with [facility] and to begin making arrangements for patient to discharge to [facility] with follow-up with outpatient behavioral health services for psychotherapy and medication management, and evaluation for IOP. MANAGEMENT PLAN: Continue Wellbutrin XL 150 mg po q am. Patient is aware he also has available to him hydroxyzine 50 mg po q 6 hours PRN for anxiety/ agitation and Trazodone 50 mg po hs PRN for insomnia Maintain safety precautions Patient to attend groups and participate in unit programming to develop coping strategies Engage patient in discharge planning process and arrange meeting with [facility] to ensure safe discharge planning when appropriate Patient to follow up with [facility] upon discharge TIME SPENT: 35 minutes Vital Signs Vital Signs Date Time Temp Pulse Resp B/P Pulse Ox O2 Delivery O2 Flow Rate FiO2 08/31/16 07:11 99.2 79 16 133/64 Current Medications Current Medications Acetaminophen (Tylenol Tab) 650 mg Q6HP PRN PO HEADACHE or DISCOMFORT Last administered on 08/30/16t 15:11; Start 08/24/16 at 22:45; Stop 09/23/16 at 22:44 Al Hydrox/Mg Hydrox/Simethicone (Mylanta) 30 ml Q4HP PRN PO HEARTBURN/ INDIGESTION; Start 08/24/16 at 22:45; Stop 09/23/16 at 22:44 Bupropion HCl (Wellbutrin Xl) 150 mg QAM PO Last administered on 08/31/16 08: 32; Start 08/25/16 at 09:00; Stop 09/24/16 at 08:59 Home Med (Med Rec Complete!) ASDIRECTED XX ; Start 08/24/16 at 20:30; Stop at 20:54; Status DC Hydroxyzine HCl (Atarax) 50 mg Q6HP PRN PO ANXIETY/AGITATION; Start 08/25/16 at 14:30; Stop 09/24/16 at 14:29 Lorazepam (Ativan) 1 mg Q4HP PRN PO ANXIETY; Start 08/24/16 at 23:00; Stop at 14:19; Status DC Magnesium Hydroxide (Milk Of Magnesia) 30 ml DAILYPRN PRN PO CONSTIPATION; Start 08/24/16 at 22:45; Stop 09/23/16 at 22:44 Oseltamivir Phosphate (Tamiflu) 75 mg DAILY PO Last administered on 08/31/16 08:32; Start 08/27/16 at 09:00; Stop 09/06/16 at 08:59 Trazodone HCl (Desyrel) 50 mg QHSP PRN PO INSOMNIA Last administered on 21:20; Start 08/24/16 at 22:45; Stop 09/23/16 at 22:44 Allergies Coded Allergies: Penicillins (Unverified Allergy, Unknown, HIVES, 08/24/16) Shonda Pickett Aug 31, 2016 09:49
[2016-08-31] MEDS: hydrOXYzine 50 MG TAB PO PRN (16:50)
[2016-08-31 18:00] VITALS: BP 133/64
[2016-08-31] MEDS: traZODone 50 MG TAB PO PRN (22:13)
[2016-09-01 06:41] VITALS: BP 117/56
[2016-09-01] MEDS ORDERED: OSEL75CA PO (08:41)
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
[2016-09-01] MEDS: hydrOXYzine 50 MG TAB PO PRN (09:49)
[2016-09-01] MEDS: OSELTAMIVIR PHOSPHATE 75 MG CAP (TAMIFLU) PO SCH (09:49)
[2016-09-01] MEDS: buPROPion **XL** TABLET 150MG (WELLBUTRIN XL) PO SCH (09:49)
[2016-09-01] MEDS ORDERED: BUPR150T3 PO (10:49)
[2016-09-01] MEDS ORDERED: HYDRO50TAB PO (10:49)
== END 2016-09-01 15:00 | disposition home or self-care (01) | DRG 885 ==
LOC: M ED 15:59 → M PSY 20:45
PROVIDERS: ADMIT Psychiatry & Neurology Psychiatry; ATTEND Psychiatry & Neurology Psychiatry
DX: F33.1 Major depressive disorder, recurrent, moderate (principal); F43.21 Adjustment disorder with depressed mood; F43.10 Post-traumatic stress disorder, unspecified; Z62.810 Personal history of physical and sexual abuse in childhood; Z88.0 Allergy status to penicillin